=== PATIENT | female | born 1985 | race Caucasian/White ===

== ENCOUNTER → 2022-09-12 | Outpatient (CLI) | payer OTHER | END | disposition home or self-care (01) | LOC: RX STUDY 10:28 | DX: N84.0 Polyp of corpus uteri (principal) ==

== ENCOUNTER 2025-04-13 13:00 | Inpatient (IN) | payer OTHER ==
[~2025-04-13] VITALS: Ht 154.9 cm; Wt 85.7 kg
[2025-04-13 13:36] VITALS: BP 116/78
[2025-04-13 14:13] LABS: URINE APPEARANCE Clear; URINE BILIRRUBIN Negative (NEGATIVE); URINE BLOOD Negative; URINE COLOR Yellow; URINE GLUCOSE Negative (NEGATIVE); URINE KETONE Negative (NEGATIVE); URINE LEUKOCYTE Negative; URINE NITRATE Negative; URINE PROTEIN Trace (NEGATIVE); URINE UROBILINOGEN 0.2 E.U./dl
[2025-04-13 14:14] LABS: URINE BACTERIA 81.6 uL (0.0-1933); URINE EPITHELIAL CELLS 12.6 uL (0.0-38.8); URINE WBC 3.0 uL (0.0-23.2)
[2025-04-13 14:18] LABS: BASO % 0.2 % (0.1-1.2); EOS # 0.02 (0.04-0.54); EOS % 0.2 % (0.7-7.0); LYMPH # 1.23 (1.18-3.74); LYMPH % 13.1 % (19.3-53.1); MEAN PLATELET VOLUME 10.90 fl (9.4-12.4); MONO # 0.54 (0.24-0.82); MONO % 5.7 % (4.7-12.5); NEUT # 7.51 (1.56-6.13); NEUT % 79.8 % (34.0-71.1); RED CELL DISTRIBUTION WIDTH 15.5 % (11.6-14.4)
[2025-04-13] MEDS ORDERED: FOLIC ACID0.8 M1 PO (14:18)
[2025-04-13] MEDS ORDERED: PRENATA CHEWAB1 EACH PO (14:18)
[2025-04-13] MEDS ORDERED: ZYRTEC10 M3 PO (14:19)
[2025-04-13] MEDS ORDERED: RINGERS SOLUTION,LACTATED 1,000 ML IV SCH (14:45)
[2025-04-13 14:55] LABS: INR 1.0
[2025-04-13 15:05] LABS: URINE CAST 0.29 uL (0.0-1.40); URINE RBC 1.1 uL (0.0-20.8)
[2025-04-13 15:08] LABS: URINE MUCUS MODERATE
[2025-04-13 15:20] LABS: ALT/SGPT 26.0 U/L (12-78); AST/SGOT 21.0 U/L (15-37); BILIRUBIN TOTAL 0.29 mg/dL (0.3-1.2); BUN CREA RATIO 20.0 (7.0-25.0); CREATININE SERUM 0.49 mg/dL (0.55-1.02); GFR 141.34; GLOBULINA 3.7 G/DL (2.4-3.5); GLUCOSE FASTING 88.0 mg/dL (65-100); OSMOLALITY SERUM 278.0 MOSM/KG (275-295)
[2025-04-13 15:23] VITALS: BP 126/78; O2SAT 100
[2025-04-13] MEDS ORDERED: MISOPROSTOL 25 MCG TABLET VAG NR (17:15)
[2025-04-13] MEDS ORDERED: FAMOTIDINE/PF 20 MG in 0.9 % SODIUM CHLORIDE 8 ML IV PUSH PRN (19:15)
[2025-04-13] MEDS ORDERED: MORPHINE SULFATE 4 MG/ML CARTRIDGE IV PRN (19:15)
[2025-04-13 23:43] VITALS: BP 119/75; O2SAT 100
[2025-04-14] VITALS (12 sets, daily range): BP systolic 130–146; BP diastolic 63–90
[2025-04-14] MEDS ORDERED: OXYTOCIN 20 UNITS/500ML RL PIGGYBAG IV ONE (07:15)
[2025-04-14] MEDS ORDERED: OXYTOCIN 500 ML IV ONE (07:30)
[2025-04-14] MEDS ORDERED: CITRIC ACID/SODIUM CITRATE 30 ML BLIST.PACK PO STA (08:18)
[2025-04-14] MEDS ORDERED: OXYTOCIN 20 UNITS/1000ML RL PIGGYBAG IV ONE (13:47)
[2025-04-14] MEDS ORDERED: ERYTHROMYCIN BASE OPHT 1GM EACH TUBE OP ONE (13:47)
[2025-04-14] MEDS ORDERED: LIDOCAINE HCL 1% 10ML VIAL ONE (13:48)
[2025-04-14] MEDS ORDERED: CHLORHEXIDINE GLUCONATE 120 ML BOTTLE TOP ONE (13:48)
[2025-04-14] MEDS ORDERED: DOCUSATE SODIUM 100MG CAP PO SCH (21:36)
[2025-04-14] MEDS ORDERED: CHLORHEXIDINE GLUCONATE 120 ML BOTTLE TOP SCH (21:45)
[2025-04-14] MEDS ORDERED: OXYTOCIN 1,000 ML IV ONE (21:45)
[2025-04-15 00:50] VITALS: BP 118/70
[2025-04-15 06:49] LABS: BASO % 0.1 % (0.1-1.2); EOS # 0.00 (0.04-0.54); EOS % 0.0 % (0.7-7.0); LYMPH # 1.30 (1.18-3.74); LYMPH % 6.4 % (19.3-53.1); MEAN PLATELET VOLUME 11.00 fl (9.4-12.4); MONO # 1.18 (0.24-0.82); MONO % 5.8 % (4.7-12.5); NEUT # 17.49 (1.56-6.13); NEUT % 86.4 % (34.0-71.1); RED CELL DISTRIBUTION WIDTH 15.7 % (11.6-14.4)
[2025-04-15 08:51] VITALS: BP 120/75
[2025-04-15] MEDS ORDERED: PNV,CALCIUM 72/IRON/FOLIC ACID 1 TAB TABLET PO SCH (09:00)
[2025-04-15 18:38] VITALS: BP 134/73
[2025-04-16 00:36] VITALS: BP 140/70
[2025-04-16 08:00] VITALS: BP 142/88
== END 2025-04-16 14:29 | disposition home or self-care (01) | DRG 807 ==
LOC: LDR 13:00 → OB/GYN 04-14 20:31 → LDR 04-14 20:33 → OB/GYN 04-14 21:53
PROVIDERS: ADMIT Obstetrics & Gynecology Gynecology; ATTEND Obstetrics & Gynecology Gynecology
PROC: 3E0P7VZ Introduction of Hormone into Female Reproductive, Via Natural or Artificial Opening (ICD-10-PCS; 2025-04-13)
PROC: 4A1HXCZ Monitoring of Products of Conception, Cardiac Rate, External Approach (ICD-10-PCS; 2025-04-13)
PROC: 10E0XZZ Delivery of Products of Conception, External Approach (ICD-10-PCS; principal; 2025-04-14)
PROC: 0KQM0ZZ Repair Perineum Muscle, Open Approach (ICD-10-PCS; 2025-04-14)
PROC: 0UQG7ZZ Repair Vagina, Via Natural or Artificial Opening (ICD-10-PCS; 2025-04-14)
PROC: 3E033VJ Introduction of Other Hormone into Peripheral Vein, Percutaneous Approach (ICD-10-PCS; 2025-04-14)
DX: O70.1 Second degree perineal laceration during delivery (principal); Z37.0 Single live birth; O13.4 Gestational [pregnancy-induced] hypertension without significant proteinuria, complicating childbirth; Z3A.38 38 weeks gestation of pregnancy